=== PATIENT | male | born 1950 | race Caucasian/White ===

== ENCOUNTER 2016-05-14 11:52 | Emergency (ER) | payer SELFPAY ==
--- NOTE | ~2016-05-14 | CR170 ---
[facility]. [facility] A Service of [facility] & [facility] RADIOLOGY TEXT RESULTS PATIENT: DAISY CAZARES LOCATION: SED : 54 UNIT #: [id number] AGE: [address]: Zander Leonard DO SEX: M ORDER DR: [id number] [place] [id number] E MR#: [id number] Acc #: [id number] NAME: DAISY CAZARES : 1950 SEX: M STUDY DATE/TIME: 05/14/2016 11:18 UNIT: SED ROOM: STUDY DESCRIPTION: CR Knee 2 Views Rt Attending Physician: Zander Leonard Ordering Physician: Staff Doctor Not On Primary Care Physician: No Primary Care Physician MEDICAL IMAGING REPORT This report is preliminary unless electronic signature is present. EXAM 2 views right knee INDICATIONS Gout. Patient reports pain starting 2-3 days ago. He is unable to walk. FINDINGS No acute fracture or subluxation of the right knee is identified. Patient has advanced degenerative changes of the right knee most pronounced within the lateral patellofemoral compartments. There is no suprapatellar effusion. Appearance is really most suggestive of osteoarthritis as I do not see any definite evidence of erosive arthropathy. IMPRESSION Degenerative changes as noted above. Dictated by... Celine Kothari M.D. THIS IS AN ELECTRONICALLY VERIFIED REPORT Celine Kothrai M.D. at 05/15/2016 1:29 PM AFF/rnr TD: 05/15/2016 00:37 JOB #: [id number] MEDICAL IMAGING REPORT
--- NOTE | ~2016-05-14 | CR169 ---
[facility] A Service of [facility] RADIOLOGY TEXT RESULTS PATIENT: DAISY CAZARES LOCATION: SED : 54 UNIT #: [id number] AGE: [address]: Zander Leonard DO SEX: M ORDER DR: [id number] [place] [id number] E MR#: [id number] Acc #: [id number] NAME: DAISY CAZARES : 1950 SEX: M STUDY DATE/TIME: 05/14/2016 11:18 UNIT: SED ROOM: STUDY DESCRIPTION: CR Knee 2 Views Lt Attending Physician: Zander Leonard Ordering Physician: Staff Doctor Not On Primary Care Physician: No Primary Care Physician MEDICAL IMAGING REPORT This report is preliminary unless electronic signature is present. EXAM 2 views left knee INDICATION Bilateral knee pain. Patient has a history of gout, pain started 2 to 3 days ago. FINDINGS No acute fracture or subluxation of the left knee is identified. Patient does have significant degenerative change, as was noted on the prior side. This appears more significant within the lateral and patellofemoral compartments. There is some mild fullness within the suprapatellar pouch which could reflect a small effusion. There is an extensive atherosclerotic involvement of the arterial vasculature. No aggressive osseous abnormalities are seen. Subchondral cyst-like change is noted throughout joint space. IMPRESSION Degenerative changes as noted above. There is also some mild fullness within the suprapatellar pouch which could reflect a small effusion. Dictated by... Celine Kothari M.D. THIS IS AN ELECTRONICALLY VERIFIED REPORT Celine Kothari M.D. at 05/15/2016 1:29 PM AFF/rnr TD: 05/15/2016 00:40 JOB #: [id number] MEDICAL IMAGING REPORT
[~2016-05-14 11:52] MED LIST: ALLOPURINOL300 MG PO; AMLODIPINE BESY10 MG PO; ASPIRIN ENTERI325 M1 PO; BAYER ASPIRIN325 M1 PO; BENZONATATE PO; BLOOD PRESSURE MED PO; CHOLESTEROL MED PO; CYPROHEPTADINE H4 MG PO; DECADRON PO; FLAGYL PO; HYCODAN PO; INDOCIN SR75 MG PO; INDOMETHACIN75 MG PO; OMEPRAZOLE20 M2 PO; PEPCID PO; PRAVACHOL; PRAVACHOL20 MG PO; PRAVASTATIN SOD20 MG PO; PREDNISONE; PREDNISONE PO; PRILOSEC PO; PROMETHAZINE D118 ML PO; VISTARIL PO; ZESTRIL10 MG PO; ZITHROMAX PO; ZYLOPRIM PO; ZYLOPRIM100 MG PO
[2016-05-14 12:01] LABS: BASOPHIL% 0.4 % (0-2.5); EOSINOPHIL# 0.3 X10e3 (0-0.7); HEMATOCRIT 41.7 % (38.0-50.0); HEMOGLOBIN 13.6 gm/dL (13.0-16.0); LYMPHOCYTE# 2.1 X10e3 (1.0-3.5); LYMPHOCYTE% 38.6 % (17.0-45.0); MEAN CELL VOLUME 81.3 FL (83-96); MEAN CORPUSCULAR HEMOGLOBIN 26.6 PG (28-34); MEAN CORPUSCULAR HGB CONC 32.7 g/dL (30-36); MEAN PLATELET VOLUME 9.9 FL (6.5-11.5); MONOCYTE# 0.5 X10e3 (0-1.0); MONOCYTE% 9.7 % (3.0-12.0); NEUTROPHIL# 2.5 X10e3 (1.5-7.1); NEUTROPHIL% 46.3 % (40-75); PLATELET COUNT 322 X10e3 (140-420); RED BLOOD COUNT 5.13 X10e (3.90-5.60); RED CELL DISTRIBUTION WIDTH 18.2 % (11.0-15.5); WHITE BLOOD COUNT 5.5 X10e3 (4.0-10.5)
[2016-05-14 12:08] LABS: DIFF IND NO
[2016-05-14 12:37] LABS: ALBUMIN SERUM 4.6 g/dL (3.5-5.0); ALKALINE PHOSPHATASE 84 U/L (32-92); ALT (SGPT) 11 U/L (10-40); AST (SGOT) 24 U/L (10-42); BILIRUBIN, DIRECT 0.3 mg/dL (0.0-0.2); BILIRUBIN,INDIRECT 0.2 mg/dL (0.0-0.9); BILIRUBIN,TOTAL 0.5 mg/dL (0.2-2.0); BLOOD UREA NITROGEN 19 mg/dL (9-23); BUN/CREATININE RATIO 17.27; CALCIUM SERUM 10.2 mg/dL (8.4-10.2); CARBON DIOXIDE 22 mmol/L (22-31); CHLORIDE 104 mmol/L (100-111); CREATININE SERUM 1.1 mg/dL (0.6-1.4); GLOM FILT RATE Estimated ABOVE60 mL/min (>60); GLUCOSE FASTING 98 mg/dL (70-110); POTASSIUM 4.3 mmol/L (3.5-5.1); PROTEIN TOTAL SERUM 7.3 g/dL (6.0-8.3); SODIUM 138 mmol/L (135-145)
[2016-05-14 12:47] LABS: URIC ACID 4.4 mg/dL (2.6-7.2)
== END 2016-05-14 14:50 | disposition home or self-care (01) ==
LOC: SED 11:52
PROVIDERS: Emergency Medicine
DX: M17.0 Bilateral primary osteoarthritis of knee (principal); E78.00 Pure hypercholesterolemia, unspecified; Z86.73 Personal history of transient ischemic attack (TIA), and cerebral infarction without residual deficits; Z87.891 Personal history of nicotine dependence; Z79.899 Other long term (current) drug therapy; Z88.8 Allergy status to other drugs, medicaments and biological substances
CPT/HCPCS: 73560; 80048; 80076; 84550; 85025; 96361; 96372; 96374; 96375; 99284; J1170; J1885; J2360

== ENCOUNTER 2016-06-12 11:18 | Emergency (ER) | payer OTHER ==
[2016-06-15 18:07] LABS: CHLAMYDIA TRACH Not Detected (Not Detected); N GONOR Detected (Not Detected)
== END 2016-06-12 11:54 | disposition home or self-care (01) ==
LOC: SED 11:18
PROVIDERS: Nurse Practitioner
DX: A54.9 Gonococcal infection, unspecified (principal); Z86.73 Personal history of transient ischemic attack (TIA), and cerebral infarction without residual deficits
CPT/HCPCS: 87491; 87591; 96372; 99283; J0696